=== PATIENT | female | born 1980 | race African-American/Black ===

== ENCOUNTER 2019-08-29 08:14 | Outpatient (CLI) | payer OTHER ==
--- NOTE | 2019-08-29 09:05 | RAD ---
PA AND LATERAL VIEWS CHEST: HISTORY: Chronic cough. FINDINGS: The heart size is normal. The lungs are expanded without lobar consolidation, pneumothoraces, or ple ural effusions. There are degenerative changes in the spine. IMPRESSION: No radiographic evidence of acute cardiopulmonary process. POS: OFF
== END 2019-08-29 08:15 | disposition home or self-care (01) ==
LOC: BICRAD 08:14
PROVIDERS: ATTEND Family Medicine
DX: R05 Cough (principal)
CPT/HCPCS: 71046

== ENCOUNTER 2022-05-14 09:50 | Outpatient (CLI) | payer BC | END 2022-05-14 09:51 | disposition home or self-care (01) | LOC: BICRAD 09:50 | PROVIDERS: ATTEND Nurse Practitioner Family | DX: S99.912S Unspecified injury of left ankle, sequela (principal); M79.89 Other specified soft tissue disorders ==

== ENCOUNTER 2023-08-18 12:40 | Outpatient (CLI) | payer BC | END 2023-08-18 12:41 | disposition home or self-care (01) | LOC: BICMAMMO 12:40 | PROVIDERS: ATTEND Nurse Practitioner Family | DX: Z12.31 Encounter for screening mammogram for malignant neoplasm of breast (principal) | CPT/HCPCS: 77063; 77067 ==